=== PATIENT | male | born 1955 | race Two or more races ===

== ENCOUNTER → 2017-12-13 | Outpatient (CLI) | payer OTHER ==
[~2017-12-13] MED LIST: ABANEU-SL TABL1 EACH SL; ALTACE2.5 MG; ALTACE2.5 MG PO; CALAN SR120 MG; CALAN SR120 MG PO; COUMADIN10 MG PO; COUMADIN6 MG; DEPAKOTE ER500 MG; DEPAKOTE ER500 MG PO; GLIMEPIRIDE4 MG; GLIMEPIRIDE4 MG PO; GLUCOPHAGE XR500 MG; HUMALOG100 U/ML; HUMULIN 70/30 V10 ML SQ; HUMULIN 70/30 V10 ML SUBCUTANEO; LIPITOR80 MG; LIPITOR80 MG PO; METFORMIN HCL1000 M1 PO; PEPCID20 MG; PEPCID20 MG PO; SYNTHROID50 MCG; SYNTHROID50 MCG PO
== END | disposition home or self-care (01) ==
LOC: LAB 11:01
DX: D68.8 Other specified coagulation defects (principal)

== ENCOUNTER 2018-01-25 10:02 | Inpatient (IN) | payer OTHER ==
[~2018-01-25] VITALS: Ht 177.8 cm; Wt 86.2 kg
[2018-01-25] MEDS ORDERED: HUMULIN 70100 UNIT/2 (10:28)
[2018-01-30] MEDS ORDERED: LIPITOR80 MG PO (11:04)
[2018-01-30] MEDS ORDERED: CALAN SR120 MG PO (11:04)
[2018-01-30] MEDS ORDERED: ASA-EC81 MG PO (11:04)
[2018-01-30] MEDS ORDERED: SEROQUEL50 MG PO (11:04)
[2018-01-30] MEDS ORDERED: PRE PROTEIN 2030 ML PO (11:04)
[2018-01-30] MEDS ORDERED: PEPCID20 MG PO (11:04)
[2018-01-30] MEDS ORDERED: GLIMEPIRIDE4 MG PO (11:04)
[2018-01-30] MEDS ORDERED: DEPAKOTE ER500 MG PO (11:04)
[2018-01-30] MEDS ORDERED: COUMADIN10 MG PO (11:04)
[2018-01-30] MEDS ORDERED: METFORMIN HCL1000 M1 PO (11:04)
[2018-01-30] MEDS ORDERED: SYNTHROID50 MCG PO (11:04)
[2018-01-30] MEDS ORDERED: GABAPENTIN400 MG PO (11:04)
[2018-01-30] MEDS ORDERED: ABANEU-SL TABL1 EACH SL (11:04)
[2018-01-30] MEDS ORDERED: ALTACE2.5 MG PO (11:04)
[2018-01-30] MEDS ORDERED: HUMULIN 70100 UNIT/2 SUBCUTANEO ×2 (11:12)
== END 2018-01-30 15:57 | DRG 65 ==
LOC: ER 10:02 → SEC-K 16:41 → MEDI 16:41
PROC: B030ZZZ Magnetic Resonance Imaging (MRI) of Brain (ICD-10-PCS; principal; 2018-01-25)
PROC: B345ZZZ Ultrasonography of Bilateral Common Carotid Arteries (ICD-10-PCS; 2018-01-25)
PROC: B348ZZZ Ultrasonography of Bilateral Internal Carotid Arteries (ICD-10-PCS; 2018-01-25)
PROC: BW28ZZZ Computerized Tomography (CT Scan) of Head (ICD-10-PCS; 2018-01-25)
PROC: B246ZZZ Ultrasonography of Right and Left Heart (ICD-10-PCS; 2018-01-25)
PROC: 4A12X4Z Monitoring of Cardiac Electrical Activity, External Approach (ICD-10-PCS; 2018-01-25)
DX: I63.59 Cerebral infarction due to unspecified occlusion or stenosis of other cerebral artery (principal); I48.3 Typical atrial flutter; F17.210 Nicotine dependence, cigarettes, uncomplicated; E03.8 Other specified hypothyroidism; I25.10 Atherosclerotic heart disease of native coronary artery without angina pectoris; E11.22 Type 2 diabetes mellitus with diabetic chronic kidney disease; I12.9 Hypertensive chronic kidney disease with stage 1 through stage 4 chronic kidney disease, or unspecified chronic kidney disease; N18.1 Chronic kidney disease, stage 1; Z79.01 Long term (current) use of anticoagulants; Z86.73 Personal history of transient ischemic attack (TIA), and cerebral infarction without residual deficits; I65.23 Occlusion and stenosis of bilateral carotid arteries
CPT/HCPCS: 70551

== ENCOUNTER 2018-03-01 10:37 | Outpatient (CLI) | payer OTHER ==
[~2018-03-01 10:37] MED LIST changes: +ASA-EC81 MG PO; +GABAPENTIN400 MG PO; +HUMULIN 70100 UNIT/2; +HUMULIN 70100 UNIT/2 SUBCUTANEO; +PRE PROTEIN 2030 ML PO; +SEROQUEL50 MG PO
== END 2018-03-01 11:10 | disposition home or self-care (01) ==
LOC: LAB 10:37
DX: D50.9 Iron deficiency anemia, unspecified (principal); E03.9 Hypothyroidism, unspecified; E78.2 Mixed hyperlipidemia; I11.9 Hypertensive heart disease without heart failure; E56.8 Deficiency of other vitamins; N39.0 Urinary tract infection, site not specified; Z12.11 Encounter for screening for malignant neoplasm of colon; R19.5 Other fecal abnormalities; E55.9 Vitamin D deficiency, unspecified; N19 Unspecified kidney failure; R80.9 Proteinuria, unspecified; E11.9 Type 2 diabetes mellitus without complications; D68.9 Coagulation defect, unspecified

== ENCOUNTER 2018-03-15 10:13 | Inpatient (IN) | payer OTHER ==
[~2018-03-15] VITALS: Ht 180.3 cm; Wt 86.2 kg
[2018-03-21] MEDS ORDERED: DOXYCYCLINE HY100 M2 PO (13:52)
[2018-03-21] MEDS ORDERED: COUMADIN5 MG PO (13:53)
[2018-03-21] MEDS ORDERED: LOVENOX80 MG/0.8 SUBCUTANEO (13:55)
[2018-03-21] MEDS ORDERED: ALTACE2.5 MG PO (13:55)
[2018-03-21] MEDS ORDERED: LIPITOR80 MG PO (13:55)
[2018-03-21] MEDS ORDERED: CALAN SR120 MG PO (13:56)
[2018-03-21] MEDS ORDERED: ASA-EC81 MG PO (13:56)
[2018-03-21] MEDS ORDERED: DEPAKOTE ER500 MG PO (13:57)
[2018-03-21] MEDS ORDERED: SEROQUEL50 MG PO (13:58)
[2018-03-21] MEDS ORDERED: PEPCID20 MG PO (13:58)
[2018-03-21] MEDS ORDERED: HUMULIN 70100 UNIT/2 SUBCUTANEO ×2 (13:59→14:00)
[2018-03-21] MEDS ORDERED: ABANEU-SL TABL1 EACH SL (14:00)
[2018-03-21] MEDS ORDERED: SYNTHROID50 MCG PO (14:00)
[2018-03-21] MEDS ORDERED: SUCRALFATE1 GM/10 ML PO (14:02)
== END 2018-03-21 16:50 | disposition home or self-care (01) | DRG 603 ==
LOC: ER 10:13 → MEDI 17:52
PROC: B030ZZZ Magnetic Resonance Imaging (MRI) of Brain (ICD-10-PCS; 2018-03-15)
PROC: BW40ZZZ Ultrasonography of Abdomen (ICD-10-PCS; 2018-03-15)
PROC: 4A033R1 Measurement of Arterial Saturation, Peripheral, Percutaneous Approach (ICD-10-PCS; principal; 2018-03-16)
DX: L03.115 Cellulitis of right lower limb (principal); N17.8 Other acute kidney failure; I48.3 Typical atrial flutter; D68.8 Other specified coagulation defects; E86.0 Dehydration; K29.00 Acute gastritis without bleeding; E03.8 Other specified hypothyroidism; I25.10 Atherosclerotic heart disease of native coronary artery without angina pectoris; Z86.73 Personal history of transient ischemic attack (TIA), and cerebral infarction without residual deficits; Z79.01 Long term (current) use of anticoagulants; E11.22 Type 2 diabetes mellitus with diabetic chronic kidney disease; E11.65 Type 2 diabetes mellitus with hyperglycemia; I12.9 Hypertensive chronic kidney disease with stage 1 through stage 4 chronic kidney disease, or unspecified chronic kidney disease; N18.1 Chronic kidney disease, stage 1; G47.09 Other insomnia
CPT/HCPCS: 70551

== ENCOUNTER 2018-03-28 11:35 | Outpatient (CLI) | payer OTHER ==
[~2018-03-28 11:35] MED LIST changes: +COUMADIN5 MG PO; +DOXYCYCLINE HY100 M2 PO; +LOVENOX80 MG/0.8 SUBCUTANEO; +SUCRALFATE1 GM/10 ML PO
== END 2018-03-28 12:01 | disposition home or self-care (01) ==
LOC: LAB 11:35
DX: D68.9 Coagulation defect, unspecified (principal)

== ENCOUNTER 2018-04-07 10:55 | Inpatient (IN) | payer OTHER ==
[~2018-04-07] VITALS: Ht 180.3 cm; Wt 79.4 kg
[2018-04-14] MEDS ORDERED: CALAN SR120 MG PO (15:41)
[2018-04-14] MEDS ORDERED: LIPITOR80 MG PO (15:41)
[2018-04-14] MEDS ORDERED: INTEGRA F CAPS1 EACH PO (15:41)
[2018-04-14] MEDS ORDERED: COUMADIN7.5 MG PO (15:41)
[2018-04-14] MEDS ORDERED: Neurin-Sl Tablet Sl SL (15:41)
[2018-04-14] MEDS ORDERED: DEPAKOTE 250 MG PO (15:41)
[2018-04-14] MEDS ORDERED: ACID REDUCER20 MG PO (15:41)
[2018-04-14] MEDS ORDERED: ALTACE5 MG PO (15:41)
== END 2018-04-14 18:33 | DRG 65 ==
LOC: ER 10:55 → MEDJ 15:17 → MEDI 15:17
PROC: 4A033R1 Measurement of Arterial Saturation, Peripheral, Percutaneous Approach (ICD-10-PCS; principal; 2018-04-07)
PROC: BW28ZZZ Computerized Tomography (CT Scan) of Head (ICD-10-PCS; 2018-04-07)
PROC: B030ZZZ Magnetic Resonance Imaging (MRI) of Brain (ICD-10-PCS; 2018-04-08)
DX: I63.533 Cerebral infarction due to unspecified occlusion or stenosis of bilateral posterior cerebral arteries (principal); G81.94 Hemiplegia, unspecified affecting left nondominant side; I48.3 Typical atrial flutter; D68.69 Other thrombophilia; N39.0 Urinary tract infection, site not specified; I25.10 Atherosclerotic heart disease of native coronary artery without angina pectoris; Z79.01 Long term (current) use of anticoagulants; E03.8 Other specified hypothyroidism; D63.8 Anemia in other chronic diseases classified elsewhere; I65.23 Occlusion and stenosis of bilateral carotid arteries; E11.22 Type 2 diabetes mellitus with diabetic chronic kidney disease; E11.65 Type 2 diabetes mellitus with hyperglycemia; I12.9 Hypertensive chronic kidney disease with stage 1 through stage 4 chronic kidney disease, or unspecified chronic kidney disease; N18.1 Chronic kidney disease, stage 1; B96.4 Proteus (mirabilis) (morganii) as the cause of diseases classified elsewhere
CPT/HCPCS: 70553

== ENCOUNTER 2018-04-17 17:26 | Inpatient (IN) | payer OTHER ==
[~2018-04-17] VITALS: Ht 180.3 cm; Wt 175.0 kg
[~2018-04-17 17:26] MED LIST changes: +ACID REDUCER20 MG PO; +ALTACE5 MG PO; +COUMADIN7.5 MG PO; +DEPAKOTE 250 MG PO; +INTEGRA F CAPS1 EACH PO; +Neurin-Sl Tablet Sl SL
[2018-04-28] MEDS ORDERED: ACID REDUCER20 MG PO (16:54)
[2018-04-28] MEDS ORDERED: DEPAKOTE ER500 MG PO (16:54)
[2018-04-28] MEDS ORDERED: SEROQUEL50 MG PO (16:54)
[2018-04-28] MEDS ORDERED: CALAN SR120 MG PO (16:54)
[2018-04-28] MEDS ORDERED: LIPITOR80 MG PO (16:54)
[2018-04-28] MEDS ORDERED: INTEGRA F CAPS1 EACH PO (16:54)
[2018-04-28] MEDS ORDERED: ALTACE5 MG PO (16:54)
[2018-04-28] MEDS ORDERED: SYNTHROID50 MCG PO (16:55)
[2018-04-28] MEDS ORDERED: HUMULIN 70100 UNIT/2 SUBCUTANEO (16:55)
[2018-04-28] MEDS ORDERED: Neurin-Sl Tablet Sl SL (16:55)
== END 2018-04-28 16:45 | DRG 65 ==
LOC: ER 17:26 → MEDI 21:22
PROC: BW28ZZZ Computerized Tomography (CT Scan) of Head (ICD-10-PCS; principal; 2018-04-17)
PROC: B345ZZZ Ultrasonography of Bilateral Common Carotid Arteries (ICD-10-PCS; 2018-04-18)
PROC: B348ZZZ Ultrasonography of Bilateral Internal Carotid Arteries (ICD-10-PCS; 2018-04-18)
PROC: B246ZZZ Ultrasonography of Right and Left Heart (ICD-10-PCS; 2018-04-18)
PROC: B246ZZ4 Ultrasonography of Right and Left Heart, Transesophageal (ICD-10-PCS; 2018-04-20)
PROC: 4A12X4Z Monitoring of Cardiac Electrical Activity, External Approach (ICD-10-PCS; 2018-04-20)
PROC: BT43ZZZ Ultrasonography of Bilateral Kidneys (ICD-10-PCS; 2018-04-21)
DX: I63.59 Cerebral infarction due to unspecified occlusion or stenosis of other cerebral artery (principal); G81.94 Hemiplegia, unspecified affecting left nondominant side; D68.69 Other thrombophilia; I48.3 Typical atrial flutter; N39.0 Urinary tract infection, site not specified; I47.1 Supraventricular tachycardia; N17.8 Other acute kidney failure; Z79.4 Long term (current) use of insulin; Z79.01 Long term (current) use of anticoagulants; I25.10 Atherosclerotic heart disease of native coronary artery without angina pectoris; E03.8 Other specified hypothyroidism; E78.4 Other hyperlipidemia; E11.22 Type 2 diabetes mellitus with diabetic chronic kidney disease; I12.9 Hypertensive chronic kidney disease with stage 1 through stage 4 chronic kidney disease, or unspecified chronic kidney disease; N18.1 Chronic kidney disease, stage 1; E11.65 Type 2 diabetes mellitus with hyperglycemia; D63.1 Anemia in chronic kidney disease; B96.4 Proteus (mirabilis) (morganii) as the cause of diseases classified elsewhere; I65.23 Occlusion and stenosis of bilateral carotid arteries

== ENCOUNTER 2018-05-31 12:56 | Outpatient (CLI) | payer OTHER | END 2018-05-31 13:07 | disposition home or self-care (01) | LOC: LAB 12:56 | DX: I11.9 Hypertensive heart disease without heart failure (principal); E11.9 Type 2 diabetes mellitus without complications; E78.2 Mixed hyperlipidemia; E03.8 Other specified hypothyroidism; D68.8 Other specified coagulation defects ==

== ENCOUNTER 2018-06-16 18:18 | Emergency (ER) | payer OTHER ==
[~2018-06-16] VITALS: Ht 175.3 cm; Wt 72.6 kg
== END 2018-06-16 22:56 | disposition home or self-care (01) ==
LOC: ER 18:18
DX: K52.9 Noninfective gastroenteritis and colitis, unspecified (principal)

== ENCOUNTER → 2018-07-26 | Emergency (ER) | payer OTHER ==
[~2018-07-26] VITALS: Ht 175.3 cm; Wt 72.6 kg
== END | disposition home or self-care (01) ==
LOC: ER 18:27
DX: R41.0 Disorientation, unspecified (principal)

== ENCOUNTER 2018-08-11 14:07 | Emergency (ER) | payer OTHER ==
[~2018-08-11] VITALS: Ht 180.3 cm; Wt 80.7 kg
== END 2018-08-11 23:40 | disposition home or self-care (01) ==
LOC: ER 14:07
DX: L97.329 Non-pressure chronic ulcer of left ankle with unspecified severity (principal)

== ENCOUNTER 2018-09-18 17:30 | Inpatient (IN) | payer OTHER ==
[~2018-09-18] VITALS: Ht 180.3 cm; Wt 76.7 kg
[2018-10-11] MEDS ORDERED: ABANEU-SL TABL1 EACH SL (16:11)
[2018-10-20] MEDS ORDERED: SEROQUEL50 MG PO (14:32)
[2018-10-20] MEDS ORDERED: NEURONTIN300 MG PO (14:32)
[2018-10-20] MEDS ORDERED: ALTACE5 MG PO (14:32)
[2018-10-20] MEDS ORDERED: DEPAKOTE ER500 MG PO (14:32)
[2018-10-20] MEDS ORDERED: LIPITOR80 MG PO (14:32)
[2018-10-20] MEDS ORDERED: ELIQUIS5 MG PO (14:32)
[2018-10-20] MEDS ORDERED: ACID REDUCER20 MG PO (14:32)
[2018-10-20] MEDS ORDERED: CALAN SR120 MG PO (14:32)
[2018-10-20] MEDS ORDERED: INTEGRA F CAPS1 EACH PO (14:32)
[2018-10-20] MEDS ORDERED: ABANEU-SL TABL1 EACH SL (14:32)
[2018-10-20] MEDS ORDERED: SYNTHROID50 MCG PO (14:32)
[2018-10-20] MEDS ORDERED: PRE PROTEIN 2030 ML PO (14:32)
[2018-10-20] MEDS ORDERED: NeurRONTin 100mg cap PO (14:32)
[2018-10-20] MEDS ORDERED: SERTRALINE HCL50 MG PO (14:32)
[2018-10-20] MEDS ORDERED: PYRIDOXINE HCL100 M1 PO (14:32)
== END 2018-10-20 17:32 | DRG 853 ==
LOC: ER 17:30 → MEDJ 09-19 11:29
PROC: CP1Z1ZZ Planar Nuclear Medicine Imaging of Musculoskeletal System, All using Technetium 99m (Tc-99m) (ICD-10-PCS; principal; 2018-09-20)
PROC: B246ZZZ Ultrasonography of Right and Left Heart (ICD-10-PCS; 2018-09-20)
PROC: 8E0ZXY6 Isolation (ICD-10-PCS; 2018-09-20)
PROC: 02HV33Z Insertion of Infusion Device into Superior Vena Cava, Percutaneous Approach (ICD-10-PCS; 2018-09-21)
PROC: CW1NLZZ Planar Nuclear Medicine Imaging of Whole Body using Gallium 67 (Ga-67) (ICD-10-PCS; 2018-09-24)
PROC: 30233N1 Transfusion of Nonautologous Red Blood Cells into Peripheral Vein, Percutaneous Approach (ICD-10-PCS; 2018-09-26)
PROC: 0Y6J0Z3 Detachment at Left Lower Leg, Low, Open Approach (ICD-10-PCS; 2018-10-16)
PROC: 30233K1 Transfusion of Nonautologous Frozen Plasma into Peripheral Vein, Percutaneous Approach (ICD-10-PCS; 2018-10-16)
DX: A41.02 Sepsis due to Methicillin resistant Staphylococcus aureus (principal); L89.524 Pressure ulcer of left ankle, stage 4; E11.52 Type 2 diabetes mellitus with diabetic peripheral angiopathy with gangrene; I48.3 Typical atrial flutter; M86.172 Other acute osteomyelitis, left ankle and foot; I96 Gangrene, not elsewhere classified; I69.354 Hemiplegia and hemiparesis following cerebral infarction affecting left non-dominant side; D68.8 Other specified coagulation defects; N17.8 Other acute kidney failure; Z74.01 Bed confinement status; E03.8 Other specified hypothyroidism; E11.649 Type 2 diabetes mellitus with hypoglycemia without coma; Z79.01 Long term (current) use of anticoagulants; I25.10 Atherosclerotic heart disease of native coronary artery without angina pectoris; E11.22 Type 2 diabetes mellitus with diabetic chronic kidney disease; I13.10 Hypertensive heart and chronic kidney disease without heart failure, with stage 1 through stage 4 chronic kidney disease, or unspecified chronic kidney disease; N18.1 Chronic kidney disease, stage 1; D63.1 Anemia in chronic kidney disease; B96.4 Proteus (mirabilis) (morganii) as the cause of diseases classified elsewhere; Z78.1 Physical restraint status; I65.23 Occlusion and stenosis of bilateral carotid arteries; R13.19 Other dysphagia

== ENCOUNTER → 2018-10-24 | Emergency (ER) | payer OTHER ==
[~2018-10-24] VITALS: Ht 180.3 cm; Wt 74.8 kg
[~2018-10-24] MED LIST changes: +ELIQUIS5 MG PO; +NEURONTIN300 MG PO; +NeurRONTin 100mg cap PO; +PYRIDOXINE HCL100 M1 PO; +SERTRALINE HCL50 MG PO
== END | disposition home or self-care (01) ==
LOC: ER 15:43
DX: I95.89 Other hypotension (principal)

== ENCOUNTER 2019-04-03 09:08 | Outpatient (CLI) | payer OTHER | END 2019-04-03 09:16 | disposition home or self-care (01) | LOC: LAB 09:08 | DX: E03.8 Other specified hypothyroidism (principal); D50.8 Other iron deficiency anemias; E78.2 Mixed hyperlipidemia; I11.9 Hypertensive heart disease without heart failure; E56.8 Deficiency of other vitamins; N39.0 Urinary tract infection, site not specified; Z12.11 Encounter for screening for malignant neoplasm of colon; E55.9 Vitamin D deficiency, unspecified; N19 Unspecified kidney failure; R80.8 Other proteinuria; C18.0 Malignant neoplasm of cecum; K92.1 Melena ==

== ENCOUNTER 2019-04-17 09:30 | Outpatient (CLI) | payer OTHER | END 2019-04-17 09:39 | disposition home or self-care (01) | LOC: LAB 09:30 | DX: D69.49 Other primary thrombocytopenia (principal) ==

== ENCOUNTER 2020-05-05 10:44 | Inpatient (IN) | payer OTHER ==
[~2020-05-05] VITALS: Ht 180.3 cm; Wt 84.4 kg
--- NOTE | 2020-05-05 10:54 | NUR ---
SE RECIBE PTE ALERTA Y ORIENTADO X3,EN AMBULANCIA ACOMPANADO POR FAMILIAR EL CUAL REFIERE QUE EL PE TIENE LAURA ULCERA INFECTADA EN EL CUARTO DEDO PIE DERECHO ,EL DEDO ESTA NEGROTICO.
--- NOTE | 2020-05-05 11:37 | NUR ---
PTE MASCULINO ALERTA Y ORIENTADO EN LAS LEN ESFERAS ES EVALUADO POR , LA CUAL ORDENA TRATAMIENTO. .BALES ORIENTA PTE SOBRE TRATAMIENTO, REFIERE COMPRENDER. PROCEDE A CANALIZAR Y COLECTAR MUESTRAS DE LABORATORIO, BAJO MEDIDAS ASEPTICAS. PENDIENTE CONSULTA CON YA NOTIFICADA.
[2020-05-06] MEDS ORDERED: ZESTRIL5 MG PO (11:18)
[2020-05-06] MEDS ORDERED: SERTRALINE HCL50 MG PO (11:19)
[2020-05-06] MEDS ORDERED: DIVALPROEX SOD500 MG PO (11:19)
[2020-05-06] MEDS ORDERED: GLIMEPIRIDE4 M1 PO (11:19)
[2020-05-06] MEDS ORDERED: XARELTO20 MG PO (11:20)
[2020-05-12] MEDS ORDERED: PYRIDOXINE HCL100 MG PO (15:11)
[2020-05-12] MEDS ORDERED: ZESTRIL5 MG PO (15:11)
[2020-05-12] MEDS ORDERED: PYRIDOXINE HCL50 MG PO (15:11)
[2020-05-12] MEDS ORDERED: SEROQUEL50 MG PO (15:11)
[2020-05-12] MEDS ORDERED: LIPITOR80 MG PO (15:11)
[2020-05-12] MEDS ORDERED: ABANEU-SL TABL1 EACH SL (15:11)
[2020-05-12] MEDS ORDERED: SYNTHROID50 MCG PO (15:11)
[2020-05-12] MEDS ORDERED: GABAPENTIN100 MG PO (15:11)
[2020-05-12] MEDS ORDERED: PRE PROTEIN1 EACH PO (15:11)
[2020-05-12] MEDS ORDERED: CEFDINIR300 MG PO (15:11)
[2020-05-12] MEDS ORDERED: SERTRALINE HCL50 MG PO (15:11)
[2020-05-12] MEDS ORDERED: DIVALPROEX SOD500 MG PO (15:11)
[2020-05-12] MEDS ORDERED: ACID REDUCER20 MG PO (15:11)
[2020-05-12] MEDS ORDERED: OXYC1TAB9 PO (15:11)
[2020-05-12] MEDS ORDERED: HUMULIN 70100 UNIT/2 SUBCUTANEO (15:11)
[2020-05-12] MEDS ORDERED: ELIQUIS5 MG PO (15:11)
[2020-05-12] MEDS ORDERED: NEURONTIN600 MG PO (15:11)
== END 2020-05-12 17:30 | disposition home health service (06) | DRG 240 ==
LOC: ER 10:44 → MEDI 18:18
PROVIDERS: Specialist; ADMIT Internal Medicine Geriatric Medicine; ATTEND Internal Medicine Geriatric Medicine
PROC: 0Y6M0ZD Detachment at Right Foot, Partial 4th Ray, Open Approach (ICD-10-PCS; principal; 2020-05-08 07:30)
DX: E11.52 Type 2 diabetes mellitus with diabetic peripheral angiopathy with gangrene (principal); I96 Gangrene, not elsewhere classified; N17.9 Acute kidney failure, unspecified; I48.92 Unspecified atrial flutter; I69.354 Hemiplegia and hemiparesis following cerebral infarction affecting left non-dominant side; M86.171 Other acute osteomyelitis, right ankle and foot; E11.621 Type 2 diabetes mellitus with foot ulcer; L97.519 Non-pressure chronic ulcer of other part of right foot with unspecified severity; Z79.4 Long term (current) use of insulin; E03.9 Hypothyroidism, unspecified; I25.10 Atherosclerotic heart disease of native coronary artery without angina pectoris; I95.9 Hypotension, unspecified; Z74.01 Bed confinement status; Z89.512 Acquired absence of left leg below knee; E11.65 Type 2 diabetes mellitus with hyperglycemia; R13.19 Other dysphagia; Z79.01 Long term (current) use of anticoagulants; I12.9 Hypertensive chronic kidney disease with stage 1 through stage 4 chronic kidney disease, or unspecified chronic kidney disease; N18.9 Chronic kidney disease, unspecified; D63.8 Anemia in other chronic diseases classified elsewhere; I69.391 Dysphagia following cerebral infarction

== ENCOUNTER 2020-11-29 16:48 | Emergency (ER) | payer OTHER ==
[~2020-11-29] VITALS: Ht 170.2 cm; Wt 79.4 kg
[~2020-11-29 16:48] MED LIST changes: +CEFDINIR300 MG PO; +DIVALPROEX SOD500 MG PO; +GABAPENTIN100 MG PO; +GLIMEPIRIDE4 M1 PO; +NEURONTIN600 MG PO; +OXYC1TAB9 PO; +PRE PROTEIN1 EACH PO; +PYRIDOXINE HCL100 MG PO; +PYRIDOXINE HCL50 MG PO; +XARELTO20 MG PO; +ZESTRIL5 MG PO
[2020-11-29] MEDS ORDERED: AIRBORNE EFFER1 EACH PO (22:30)
[2020-11-29] MEDS ORDERED: IVERMECTIN3 MG PO (22:30)
== END 2020-11-30 01:56 | disposition home or self-care (01) ==
LOC: ER 16:48
DX: R06.02 Shortness of breath (principal); Z20.822 Contact with and (suspected) exposure to COVID-19

== ENCOUNTER 2020-12-03 14:34 | Inpatient (IN) | payer OTHER ==
[~2020-12-03] VITALS: Ht 27.9 cm; Wt 5.0 kg
[~2020-12-03 14:34] MED LIST changes: +AIRBORNE EFFER1 EACH PO; +IVERMECTIN3 MG PO
[2020-12-11] MEDS ORDERED: HUMALOG100 UNIT/1 SUBCUTANEO (11:55)
[2020-12-11] MEDS ORDERED: SYNTHROID50 MCG PO (11:55)
[2020-12-11] MEDS ORDERED: ZINC SULFATE220 M2 PO (11:55)
[2020-12-11] MEDS ORDERED: Lantus 1000 UNITS/10 SUBCUTANEO ×2 (11:55)
[2020-12-11] MEDS ORDERED: ELIQUIS5 MG PO (11:55)
[2020-12-11] MEDS ORDERED: GLIMEPIRIDE4 M1 PO (11:55)
[2020-12-11] MEDS ORDERED: MELATONIN5 M2 PO (11:55)
[2020-12-11] MEDS ORDERED: VITAMIN C500 M1 PO (11:55)
[2020-12-11] MEDS ORDERED: Neurin-Sl Tablet Sl SL (11:55)
[2020-12-11] MEDS ORDERED: LIPITOR80 MG PO (11:55)
[2020-12-11] MEDS ORDERED: OMEGA-3 ACID ETH1 GM PO (11:55)
[2020-12-11] MEDS ORDERED: PYRIDOXINE HCL100 MG PO (11:55)
[2020-12-11] MEDS ORDERED: INTESTINEX680 M1 PO (11:55)
[2020-12-11] MEDS ORDERED: SERTRALINE HCL50 MG PO (11:55)
[2020-12-11] MEDS ORDERED: QUETIAPINE FUMA25 MG PO (11:55)
[2020-12-11] MEDS ORDERED: ZESTRIL5 MG PO (11:55)
[2020-12-11] MEDS ORDERED: VERAPAMIL ER120 MG PO (11:55)
[2020-12-11] MEDS ORDERED: GABAPENTIN300 MG PO (11:55)
[2020-12-11] MEDS ORDERED: MUCINEX600 MG PO (11:55)
[2020-12-11] MEDS ORDERED: MEDROLPACK PO (11:55)
[2020-12-11] MEDS ORDERED: ACID REDUCER20 MG PO (11:55)
[2020-12-11] MEDS ORDERED: HUMULIN 70100 UNIT/2 SUBCUTANEO (12:01)
== END 2020-12-11 14:33 | disposition home or self-care (01) | DRG 177 ==
LOC: ER 14:34 → MEDJ 20:15 → MEDI 12-04 23:09 → MEDJ 12-05 00:17
PROVIDERS: ADMIT Internal Medicine Geriatric Medicine; ATTEND Internal Medicine Geriatric Medicine
PROC: 4A033R1 Measurement of Arterial Saturation, Peripheral, Percutaneous Approach (ICD-10-PCS; principal; 2020-12-03)
PROC: 8E0ZXY6 Isolation (ICD-10-PCS; 2020-12-03)
PROC: XW033E5 Introduction of Remdesivir Anti-infective into Peripheral Vein, Percutaneous Approach, New Technology Group 5 (ICD-10-PCS; 2020-12-03)
PROC: 3E0F7SF Introduction of Other Gas into Respiratory Tract, Via Natural or Artificial Opening (ICD-10-PCS; 2020-12-03)
DX: U07.1 COVID-19 (principal); J12.82 Pneumonia due to coronavirus disease 2019; A41.9 Sepsis, unspecified organism; I48.92 Unspecified atrial flutter; I69.354 Hemiplegia and hemiparesis following cerebral infarction affecting left non-dominant side; N17.8 Other acute kidney failure; L97.518 Non-pressure chronic ulcer of other part of right foot with other specified severity; R09.02 Hypoxemia; I10 Essential (primary) hypertension; E03.8 Other specified hypothyroidism; Z74.01 Bed confinement status; Z79.01 Long term (current) use of anticoagulants; Z89.512 Acquired absence of left leg below knee; Z89.421 Acquired absence of other right toe(s); F17.210 Nicotine dependence, cigarettes, uncomplicated; D64.9 Anemia, unspecified; E11.621 Type 2 diabetes mellitus with foot ulcer; I65.29 Occlusion and stenosis of unspecified carotid artery

== ENCOUNTER 2020-12-18 11:51 | Inpatient (IN) | payer OTHER ==
[~2020-12-18] VITALS: Ht 180.3 cm; Wt 79.4 kg
[~2020-12-18 11:51] MED LIST changes: +GABAPENTIN300 MG PO; +HUMALOG100 UNIT/1 SUBCUTANEO; +INTESTINEX680 M1 PO; +Lantus 1000 UNITS/10 SUBCUTANEO; +MEDROLPACK PO; +MELATONIN5 M2 PO; +MUCINEX600 MG PO; +OMEGA-3 ACID ETH1 GM PO; +QUETIAPINE FUMA25 MG PO; +VERAPAMIL ER120 MG PO; +VITAMIN C500 M1 PO; +ZINC SULFATE220 M2 PO
[2020-12-22] MEDS ORDERED: HUMULIN 70100 UNIT/2 (11:22)
[2020-12-22] MEDS ORDERED: FAMOTIDINE20 MG (11:22)
[2020-12-22] MEDS ORDERED: OMEGA-3 ACID ETH1 GM (11:22)
[2020-12-22] MEDS ORDERED: METHYLPREDNISOLO4 M1 (11:22)
[2020-12-22] MEDS ORDERED: ATORVASTATIN CA80 MG (11:23)
[2020-12-22] MEDS ORDERED: GABAPENTIN300 M2 (11:23)
[2020-12-22] MEDS ORDERED: LEVOTHYROXINE50 MCG (11:23)
[2020-12-22] MEDS ORDERED: DIVALPROEX SOD500 MG (11:23)
[2020-12-22] MEDS ORDERED: GLIMEPIRIDE4 M1 (11:23)
[2020-12-22] MEDS ORDERED: QUETIAPINE FUMA25 MG (11:23)
[2020-12-22] MEDS ORDERED: IVERMECTIN3 MG (11:24)
[2020-12-22] MEDS ORDERED: LISINOPRIL5 MG (11:24)
[2020-12-22] MEDS ORDERED: XARELTO20 MG (11:24)
[2020-12-22] MEDS ORDERED: SERTRALINE HCL50 MG (11:24)
== END 2020-12-30 05:37 | disposition expired | DRG 207 ==
LOC: ER 11:51 → MEDJ 18:03 → ICU 12-26 22:51
PROVIDERS: ADMIT Internal Medicine Geriatric Medicine; ATTEND Internal Medicine Geriatric Medicine
PROC: 8E0ZXY6 Isolation (ICD-10-PCS; 2020-12-18)
PROC: 4A12X4Z Monitoring of Cardiac Electrical Activity, External Approach (ICD-10-PCS; 2020-12-18)
PROC: 4A033R1 Measurement of Arterial Saturation, Peripheral, Percutaneous Approach (ICD-10-PCS; 2020-12-18)
PROC: 8E0ZXY6 Isolation (ICD-10-PCS; 2020-12-18)
PROC: 02HV33Z Insertion of Infusion Device into Superior Vena Cava, Percutaneous Approach (ICD-10-PCS; 2020-12-19)
PROC: B24BZZZ Ultrasonography of Heart with Aorta (ICD-10-PCS; 2020-12-19)
PROC: 30233N1 Transfusion of Nonautologous Red Blood Cells into Peripheral Vein, Percutaneous Approach (ICD-10-PCS; 2020-12-19)
PROC: 5A1955Z Respiratory Ventilation, Greater than 96 Consecutive Hours (ICD-10-PCS; principal; 2020-12-25)
PROC: 0BH17EZ Insertion of Endotracheal Airway into Trachea, Via Natural or Artificial Opening (ICD-10-PCS; 2020-12-25)
DX: U07.1 COVID-19 (principal); J12.82 Pneumonia due to coronavirus disease 2019; A41.02 Sepsis due to Methicillin resistant Staphylococcus aureus; I69.354 Hemiplegia and hemiparesis following cerebral infarction affecting left non-dominant side; N17.8 Other acute kidney failure; B37.49 Other urogenital candidiasis; R09.02 Hypoxemia; I11.9 Hypertensive heart disease without heart failure; I25.10 Atherosclerotic heart disease of native coronary artery without angina pectoris; F17.210 Nicotine dependence, cigarettes, uncomplicated; L89.619 Pressure ulcer of right heel, unspecified stage; I48.0 Paroxysmal atrial fibrillation; Z74.01 Bed confinement status; Z79.4 Long term (current) use of insulin; E11.65 Type 2 diabetes mellitus with hyperglycemia; E03.8 Other specified hypothyroidism; Z89.612 Acquired absence of left leg above knee; Z79.01 Long term (current) use of anticoagulants; D63.8 Anemia in other chronic diseases classified elsewhere